=== PATIENT | female | born 1965 | race Caucasian/White ===

== ENCOUNTER 2021-02-26 09:48 | Observation (INO) | payer BC ==
[2021-02-23 13:04] LABS: BASOPHILS % 0.7 % (0.0-1.0); EOSINOPHILS # (AUTO) 0.2 (0.0-0.4); EOSINOPHILS % 4.7 % (0.0-6.0); HEMATOCRIT 39.3 % (34.2-44.1); HEMOGLOBIN 12.7 g/dL (12.0-16.0); LYMPHOCYTES # (AUTO) 1.5 (1.0-3.2); MEAN CORPUSCULAR HEMOGLOBIN 29.1 pg (28-32); MEAN CORPUSCULAR HGB CONC 32.3 g/dL (31-35); MEAN CORPUSCULAR VOLUME 89.9 fL (81-99); MONOCYTES # (AUTO) 0.5 (0.2-0.8); MONOCYTES % 10.4 % (4.4-11.3); NEUTROPHILS # (AUTO) 2.3 (2.1-6.9); PLATELET COUNT 317 x10e3/uL (140-360); RED BLOOD COUNT 4.37 x10e6/uL (3.6-5.1)
[2021-02-23 13:12] LABS: INR 0.82; PROTHROMBIN TIME 11.9 seconds (11.9-14.5)
[2021-02-23 13:13] LABS: PARTIAL THROMBOPLASTIN TIME 26.4 seconds (23.8-35.5)
[2021-02-23 13:37] LABS: ANION GAP 13.1 mmol/L (8-16); BLOOD UREA NITROGEN 9 mg/dL (7-26); BUN/CREATININE RATIO 12 (6-25); CARBON DIOXIDE 28 mmol/L (22-29); CHLORIDE 103 mmol/L (98-107); CREATININE, SERUM 0.76 mg/dL (0.57-1.11); EST GLOMERULAR FILTRATION RATE > 60 ML/MIN (60-); GLUCOSE 101 mg/dL (74-118); POTASSIUM 4.1 mmol/L (3.5-5.1); SODIUM 140 mmol/L (136-145)
[~2021-02-26] VITALS: Ht 160 cm; Wt 71.3 kg
[~2021-02-26 09:48] MED LIST: ACETAMINOPHEN 1000 MG/100 ML 100 ML IV ONE; GRALISE600 MG PO; LEXAPRO20 MG PO; LIDOCAINE HCL (LTA) 4 ML SOLN ONE; LOSARTAN POTAS100 MG PO; MAGNESIUM OXID400 MG PO; MOBIC7.5 MG PO; NEXIUM40 MG PO; SPIRONOLACTONE25 MG PO; TYLENOL325 MG PO; VIT B12 INJ; VIT D3 PO; ZOLPIDEM TARTRAT5 MG PO
[2021-02-26] MEDS ORDERED: LIDOCAINE 1% W/EPINEPHRINE 20 ML VIAL ONE (11:32)
[2021-02-26] MEDS ORDERED: THROMBIN FOR SOLN 5,000 UNIT VIAL ONE (11:32)
[2021-02-26] MEDS ORDERED: VANCOMYCIN HCL 500 MG ONE (11:32)
[2021-02-26] MEDS ORDERED: Vancomycin IV 1 GM VIAL ONE (12:11)
[2021-02-26] MEDS ORDERED: SODIUM CHLORIDE 0.9% 250ML 250 ML ONE (12:12)
[2021-02-26] MEDS ORDERED: DEXAMETHASONE SOD PHOS INJ 4 MG/ML VIAL ONE (12:24)
[2021-02-26] MEDS ORDERED: ONDANSETRON HCL INJ 2MG/ML 2ML 2 MG/ML VIAL ONE (12:24)
[2021-02-26] MEDS ORDERED: SEVOFLURANE INHAL SOLN 250 ML PEN BTL ONE (12:24)
[2021-02-26] MEDS ORDERED: POVIDONE IODINE 0.05% 0.05 % ML PO ONE (12:24)
[2021-02-26] MEDS ORDERED: ROCURONIUM BROMIDE 10 MG/ML 5ML VIAL IV ONE (12:24)
[2021-02-26] MEDS ORDERED: LIDOCAINE HCL 2% LOCAL INJ 5 ML SDV VIAL INJ ONE (12:24)
[2021-02-26] MEDS ORDERED: KETOROLAC TROMETHAMINE 30 MG/ML VIAL ONE (12:24)
[2021-02-26] MEDS ORDERED: NEOSTIGMINE 1 MG/ML 10ML VIAL ONE (12:24)
[2021-02-26] MEDS ORDERED: PROPOFOL IV EMULSION 10 MG/ML 20 ML VIAL ONE (12:24)
[2021-02-26] MEDS ORDERED: GLYCOPYRROLATE INJ 0.2 MG/ML VIAL ONE (12:24)
[2021-02-26] MEDS ORDERED: FENTANYL CITRATE/PF 100MCG/2 ML INJ ONE ×2 (13:29→15:07)
[2021-02-26] MEDS ORDERED: MIDAZOLAM HCL 2 MG/2 ML VIAL ONE (13:29)
[2021-02-26] MEDS ORDERED: HYDROCODON-ACE1 EA12 PO (14:42)
[2021-02-26] MEDS ORDERED: ONDANSETRON HCL INJ 2MG/ML 2ML 2 MG/ML VIAL IV PRN (14:45)
[2021-02-26] MEDS ORDERED: ACETAMINOPHEN 325 MG TAB PO PRN (14:45)
[2021-02-26] MEDS ORDERED: CARISOPRODOL 350 MG TAB PO PRN (14:45)
[2021-02-26] MEDS ORDERED: MAGNESIUM/ALUMINUM/SIMETHICONE 30 ML UDC PO PRN (14:45)
[2021-02-26] MEDS ORDERED: MORPHINE SULFATE 5 MG/ML VIAL IM PRN (14:45)
[2021-02-26] MEDS ORDERED: ZOLPIDEM TARTRATE 5 MG TAB PO PRN (14:45)
[2021-02-26] MEDS ORDERED: HYDROMORPHONE 2MG/ML 2 MG/ML ML IV PRN (14:45)
[2021-02-26] MEDS ORDERED: PROMETHAZINE HCL (IM) 25 MG/ML VIAL IM PRN (14:45)
[2021-02-26] MEDS ORDERED: METOCLOPRAMIDE HCL 10 MG/2ML VIAL ONE (15:29)
[2021-02-26] MEDS ORDERED: MEPERIDINE HCL INJ 25 MG/ML VIAL ONE (15:45)
[2021-02-26 17:05] VITALS: BP 127/71
[2021-02-26 17:06] VITALS: BP 105/56
[2021-02-26 17:41] VITALS: BP 105/56
[2021-02-26] MEDS: SPIRONOLACTONE 25 MG TAB PO SCH (18:04)
[2021-02-26] MEDS: OXYCODONE/ACETAMINOPHEN 5-325 1 EACH TABLET PO PRN (18:05)
[2021-02-26] MEDS: LACTATED RINGER'S 1,000 ML IV SCH ×2 (18:18→20:54)
[2021-02-26 20:00] VITALS: BP 101/54
[2021-02-26 20:09] VITALS: BP 101/54
[2021-02-26] MEDS ORDERED: GABAPENTIN 800 MG PO SCH (21:00)
[2021-02-26] MEDS ORDERED: ZOLPIDEM TARTRATE 10 MG TAB PO SCH (21:00)
[2021-02-27] VITALS: BP 128/70
[2021-02-27] MEDS ORDERED: Vancomycin IV 1 GM in SODIUM CHLORIDE 0.9% 250ML 250 ML IV SCH ×2
[2021-02-27 04:50] VITALS: BP 135/72
[2021-02-27] MEDS: OXYCODONE/ACETAMINOPHEN 5-325 1 EACH TABLET PO PRN (07:43)
[2021-02-27 07:51] VITALS: BP 98/64
[2021-02-27 08:00] VITALS: BP 98/68
[2021-02-27] MEDS ORDERED: PANTOPRAZOLE SOD 40 MG TABEC PO SCH (09:00)
[2021-02-27] MEDS ORDERED: MELOXICAM 7.5 MG TAB PO SCH (09:00)
[2021-02-27] MEDS ORDERED: MAGNESIUM OXIDE 400 MG TAB PO SCH (09:00)
[2021-02-27] MEDS ORDERED: ESCITALOPRAM OXALATE 10 MG TAB PO SCH (09:00)
[2021-02-27] MEDS ORDERED: LOSARTAN POTASSIUM 100 MG TAB PO SCH (09:00)
[2021-02-27] MEDS: SPIRONOLACTONE 25 MG TAB PO SCH (09:30)
== END 2021-02-27 10:30 | disposition home or self-care (01) ==
LOC: OR 09:48 → PACU V 14:34 → IMCU 16:20
PROVIDERS: ADMIT Neurological Surgery; ATTEND Neurological Surgery
DX: M71.38 Other bursal cyst, other site (principal); Z01.818 Encounter for other preprocedural examination; I10 Essential (primary) hypertension
CPT/HCPCS: 36415; 63267; 71046; 72020; 80048; 85025; 85610; 85730; 86850; 86900; 88304; 88311; 93005; G0378 ×2; J0131; J1100; J1885; J2001; J2175; J2250; J2405; J2704; J2710; J2765; J3010; J3370 ×3; J7050 ×2; J7121; S0164